=== PATIENT | female | born 1975 | race Caucasian/White ===

== ENCOUNTER 2021-09-30 13:57 | Inpatient (IN) | payer MEDICAID, OTHER ==
[~2021-09-30] VITALS: Ht 157.5 cm; Wt 62.4 kg
[2021-09-30 16:03] LABS: BASOPHILS % (AUTO) 0.3 % (0.0-2.0); EOSINOPHILS % (AUTO) 2.1 % (1.0-6.0); HEMATOCRIT 40.6 % (36-46); HEMOGLOBIN 13.7 g/dL (12.0-16.0); LYMPHOCYTES # (AUTO) 1.8 K/uL (1.0-4.8); LYMPHOCYTES % (AUTO) 22.8 % (22.0-44.0); MEAN CORPUSCULAR HEMOGLOBIN 28.1 pg (26.0-34.0); MEAN CORPUSCULAR HGB CONC 33.7 G/dL (31.0-37.0); MEAN CORPUSCULAR VOLUME 83 fL (80-100); MONOCYTES # (AUTO) 0.4 K/uL (0.1-1.0); MONOCYTES % (AUTO) 5.1 % (2.0-9.0); NEUTROPHILS # (AUTO) 5.6 K/uL (1.8-7.7); NEUTROPHILS % (AUTO) 69.7 % (40.0-70.0); PLATELET COUNT (AUTO) 327 K/uL (150-450); RED BLOOD CELL COUNT(AUTO) 4.87 MIL/uL (4.00-5.20); RED CELL DISTRIBUTION WIDTH 13.8 % (11.5-14.5)
[2021-09-30 16:15] LABS: ANION GAP 12 mmol/L (8-16); CALCIUM, TOTAL 10.1 mg/dL (8.8-10.5); CARBON DIOXIDE 26 mmol/L (22-29); CHLORIDE 95 mmol/L (98-107); CREATININE 0.74 mg/dL (0.60-1.30); GLOMERULAR FILTR. RATE CALC > 60 mL/min (>60); GLUCOSE,RANDOM 336 mg/dL (70-110); POTASSIUM 4.2 mmol/L (3.5-5.1); SODIUM SERUM 133 mmol/L (136-145); UREA NITROGEN, BLOOD 18 mg/dL (7-18)
[2021-09-30 16:22] LABS: ALANINE AMINOTRANSFERASE 34 U/L (12-78); ALKALINE PHOSPHATASE 129 U/L (46-116); ASPARTATE AMINOTRANSFERASE 11 U/L (15-37); BILIRUBIN,TOTAL 0.2 mg/dL (0.1-1.0); TOTAL PROTEIN, SERUM 8.8 g/dL (6.4-8.2)
[2021-09-30 16:26] LABS: GLUCOSE,POINT OF CARE 303 MG/DL (70-110)
[2021-09-30 16:34] LABS: COVID AG,FIA SOURCE NASAL SWAB
[2021-09-30 16:45] LABS: AMPHET/METH SCREEN,URINE NEGATIVE (NEGATIVE); BARBITURATE SCREEN, URINE NEGATIVE (NEGATIVE); BENZODIAZEPINES SCREEN,URINE NEGATIVE (NEGATIVE); CANNABINOID SCREEN,URINE NEGATIVE (NEGATIVE); COCAINE SCREEN,URINE NEGATIVE (NEGATIVE); METHADONE SCREEN, URINE NEGATIVE (NEGATIVE); OPIATE SCREEN,URINE NEGATIVE (NEGATIVE)
[2021-09-30 16:51] LABS: PHENCYCLIDINE SCREEN,URINE NEGATIVE (NEGATIVE)
[2021-09-30] MEDS ORDERED: SODIUM CHLORIDE 0.9% 1,000 ML IV ONE (17:00)
[2021-09-30] MEDS ORDERED: INSULIN REGULAR, HUMAN 100 UNITS/ML SQ ONE (19:00)
[2021-09-30 19:10] LABS: GLUCOSE,POINT OF CARE 376 MG/DL (70-110)
[2021-09-30] MEDS ORDERED: ZOLPIDEM TARTRATE 10 MG TABLET PO PRN (21:00)
[2021-09-30] MEDS ORDERED: LORazepam 2 MG TABLET PO PRN (21:00)
[2021-09-30] MEDS ORDERED: OLANZapine 5 MG RAPDIS TABLET PO PRN (21:00)
[2021-09-30 21:21] LABS: GLUCOSE,POINT OF CARE 330 MG/DL (70-110)
[2021-09-30 21:30] VITALS: BP 121/84
[2021-09-30] MEDS ORDERED: DEXTROSE 50%-WATER 25 GM/50 ML SYRINGE IVP PRN (22:00)
[2021-09-30 22:01] LABS: GLUCOMETER DEV NAME(LOC) 3EX.; GLUCOSE,POINT OF CARE 305 MG/DL (70-110)
[2021-09-30] MEDS: INSULIN LISPRO 100 UNITS/ML SQ PRN (22:18)
[2021-10-01 05:36] LABS: GLUCOMETER DEV NAME(LOC) 3EX.; GLUCOSE,POINT OF CARE 266 MG/DL (70-110)
[2021-10-01] MEDS: MetFORMIN HCL 500 MG TABLET PO SCH ×2 (06:55→16:50)
[2021-10-01] MEDS: INSULIN LISPRO 100 UNITS/ML SQ PRN ×4 (06:57→20:54)
[2021-10-01 08:04] VITALS: BP 113/78
[2021-10-01 08:14] LABS: HEMOGLOBIN A1C 12.6 % (3.8-5.6)
[2021-10-01 08:26] LABS: CHOL/HDL RATIO 5.8 (3.9-5.7); CHOLESTEROL 263 mg/dL (131-200); FREE T4 (FREE THYROXINE) 1.01 ng/dL (0.76-1.46); HDL CHOLESTEROL 45 mg/dL (40-60); THYROID STIMULATING HORMONE 0.53 uIU/mL (0.36-3.74); TRIGLYCERIDES 454 mg/dL (15-150)
[2021-10-01] MEDS: NICOTINE 21 MG/24 HOUR PATCH TD SCH (09:28)
[2021-10-01] MEDS: PIOGLITAZONE HCL 30 MG TABLET PO SCH (10:48)
[2021-10-01 11:37] LABS: GLUCOMETER DEV NAME(LOC) 3EX.; GLUCOSE,POINT OF CARE 384 MG/DL (70-110)
[2021-10-01 12:05] VITALS: BP 113/78
[2021-10-01] MEDS: OMEPRAZOLE 20 MG CAPSULE PO SCH (13:13)
[2021-10-01] MEDS ORDERED: ACETAMINOPHEN 325 MG TABLET PO PRN (14:00)
[2021-10-01] MEDS ORDERED: MAG HYDROX/AL HYDROX/SIMETH ES 30 ML SUSPENSION UDCUP PO PRN (14:00)
[2021-10-01] MEDS ORDERED: HydrOXYzine PAMOATE 50 MG CAPSULE PO PRN (14:00)
[2021-10-01] MEDS ORDERED: GuaiFENesin/D-METHORPHAN [SUGAR-FREE] 200-20MG/10 ML SYRUP UDCUP PO PRN (14:00)
[2021-10-01] MEDS ORDERED: MAGNESIUM HYDROXIDE SUSPENSION 30 ML UDCUP PO PRN (14:00)
[2021-10-01] MEDS ORDERED: LOPERAMIDE HCL 2 MG CAPSULE PO PRN (14:00)
[2021-10-01] MEDS ORDERED: PROMETHAZINE HCL 25 MG TABLET PO PRN (14:00)
[2021-10-01] MEDS ORDERED: TUBERCULIN, PURIFIED PROTEIN DERIVATIVE 5 TU/0.1 ML SYRINGE ID ONE (14:00)
[2021-10-01] MEDS ORDERED: HALOPERIDOL 5 MG TABLET PO PRN (16:15)
[2021-10-01] MEDS ORDERED: HALOPERIDOL DECANOATE 100 MG/ML VIAL IM ONE (16:15)
[2021-10-01 16:16] LABS: GLUCOMETER DEV NAME(LOC) 3EX.; GLUCOSE,POINT OF CARE 348 MG/DL (70-110)
[2021-10-01 16:20] VITALS: BP 120/87
[2021-10-01] MEDS: THIAMINE 100 MG TABLET PO SCH (16:50)
[2021-10-01] MEDS: ATORVASTATIN CALCIUM 40 MG TABLET PO SCH (20:16)
[2021-10-01] MEDS: MELATONIN 5 MG TABLET PO SCH (20:16)
[2021-10-01 20:26] LABS: GLUCOMETER DEV NAME(LOC) 3EX.; GLUCOSE,POINT OF CARE 260 MG/DL (70-110)
[2021-10-01] MEDS ORDERED: OLANZapine 5 MG RAPDIS TABLET PO SCH (21:00)
[2021-10-02 05:42] LABS: GLUCOMETER DEV NAME(LOC) 3EX.; GLUCOSE,POINT OF CARE 278 MG/DL (70-110)
[2021-10-02] MEDS: MetFORMIN HCL 500 MG TABLET PO SCH ×2 (06:46→17:07)
[2021-10-02] MEDS: INSULIN LISPRO 100 UNITS/ML SQ PRN ×4 (06:48→20:59)
[2021-10-02 08:16] LABS: HEMOGLOBIN A1C 12.7 % (3.8-5.6)
[2021-10-02 08:33] LABS: CHOL/HDL RATIO 5.3 (3.9-5.7); FREE T4 (FREE THYROXINE) 1.02 ng/dL (0.76-1.46); THYROID STIMULATING HORMONE 0.85 uIU/mL (0.36-3.74)
[2021-10-02 08:38] VITALS: BP 117/60
[2021-10-02] MEDS ORDERED: FLUoxetine HCL 20 MG CAPSULE PO SCH (09:00)
[2021-10-02] MEDS: PIOGLITAZONE HCL 30 MG TABLET PO SCH (09:47)
[2021-10-02] MEDS: OMEGA-3/DHA/EPA/FISH OIL 1,000 MG CAPSULE PO SCH (09:47)
[2021-10-02] MEDS: OMEPRAZOLE 20 MG CAPSULE PO SCH (09:48)
[2021-10-02] MEDS: FOLIC ACID 1 MG TABLET PO SCH (09:48)
[2021-10-02] MEDS: NICOTINE 21 MG/24 HOUR PATCH TD SCH (09:48)
[2021-10-02] MEDS: THIAMINE 100 MG TABLET PO SCH ×2 (09:48→17:07)
[2021-10-02] MEDS: MULTIVITAMINS WITH MINERALS, THERAPEUTIC TABLET PO SCH (09:48)
[2021-10-02] MEDS: NALTREXONE HCL 50 MG TABLET PO SCH (09:48)
[2021-10-02 12:41] LABS: GLUCOMETER DEV NAME(LOC) 3E.I 2; GLUCOSE,POINT OF CARE 250 MG/DL (70-110)
[2021-10-02] MEDS ORDERED: QUET200T30 PO (16:09)
[2021-10-02] MEDS ORDERED: MELA5TAB40 PO (16:09)
[2021-10-02] MEDS ORDERED: NALT50TA PO (16:09)
[2021-10-02] MEDS ORDERED: OMEG-108 PO (16:09)
[2021-10-02 16:23] VITALS: BP 113/70
[2021-10-02 16:35] LABS: GLUCOMETER DEV NAME(LOC) 3EX.; GLUCOSE,POINT OF CARE 339 MG/DL (70-110)
[2021-10-02] MEDS: GlyBURIDE 5 MG TABLET PO SCH (17:06)
[2021-10-02 20:16] LABS: GLUCOMETER DEV NAME(LOC) 3EX.; GLUCOSE,POINT OF CARE 213 MG/DL (70-110)
[2021-10-02] MEDS: ATORVASTATIN CALCIUM 40 MG TABLET PO SCH (20:25)
[2021-10-02] MEDS: MELATONIN 5 MG TABLET PO SCH (20:25)
[2021-10-02] MEDS ORDERED: QUEtiapine FUMARATE 200 MG TABLET PO SCH (21:00)
[2021-10-03 05:56] LABS: GLUCOMETER DEV NAME(LOC) 3EX.; GLUCOSE,POINT OF CARE 151 MG/DL (70-110)
[2021-10-03] MEDS: MetFORMIN HCL 500 MG TABLET PO SCH (06:36)
[2021-10-03] MEDS: GlyBURIDE 5 MG TABLET PO SCH (06:36)
[2021-10-03] MEDS: INSULIN LISPRO 100 UNITS/ML SQ PRN ×2 (06:51→11:34)
[2021-10-03] MEDS: OMEPRAZOLE 20 MG CAPSULE PO SCH (08:43)
[2021-10-03] MEDS: FOLIC ACID 1 MG TABLET PO SCH (08:43)
[2021-10-03] MEDS: MULTIVITAMINS WITH MINERALS, THERAPEUTIC TABLET PO SCH (08:43)
[2021-10-03] MEDS: NALTREXONE HCL 50 MG TABLET PO SCH (08:43)
[2021-10-03] MEDS: THIAMINE 100 MG TABLET PO SCH (08:43)
[2021-10-03] MEDS: OMEGA-3/DHA/EPA/FISH OIL 1,000 MG CAPSULE PO SCH (08:43)
[2021-10-03] MEDS: NICOTINE 21 MG/24 HOUR PATCH TD SCH (08:43)
[2021-10-03] MEDS: PIOGLITAZONE HCL 30 MG TABLET PO SCH (08:43)
[2021-10-03 09:00] VITALS: BP 100/66
[2021-10-03] MEDS ORDERED: METF-1211 PO (10:25)
[2021-10-03] MEDS ORDERED: GLYB5TAB10 PO (10:25)
[2021-10-03] MEDS ORDERED: PIOG30TA10 PO (10:25)
[2021-10-03] MEDS ORDERED: OMEP20 PO (10:25)
[2021-10-03] MEDS ORDERED: ATOR40TA28 PO (10:25)
[2021-10-03 11:36] LABS: GLUCOMETER DEV NAME(LOC) 3EX.; GLUCOSE,POINT OF CARE 263 MG/DL (70-110)
[2021-10-31] MEDS ORDERED: HALOPERIDOL DECANOATE 100 MG/ML VIAL IM SCH (09:00)
== END 2021-10-03 14:50 | disposition home or self-care (01) | DRG 750 ==
LOC: EMS 13:57 → 3EI 20:57
PROVIDERS: ADMIT Psychiatry & Neurology Psychiatry; ATTEND Psychiatry & Neurology Psychiatry
DX: F20.9 Schizophrenia, unspecified (principal); E87.1 Hypo-osmolality and hyponatremia; E11.9 Type 2 diabetes mellitus without complications; E78.5 Hyperlipidemia, unspecified; F17.200 Nicotine dependence, unspecified, uncomplicated; Z20.822 Contact with and (suspected) exposure to COVID-19; J45.909 Unspecified asthma, uncomplicated; Z55.9 Problems related to education and literacy, unspecified; Z59.9 Problem related to housing and economic circumstances, unspecified; Z63.9 Problem related to primary support group, unspecified; Z65.3 Problems related to other legal circumstances; Z91.19 Patient's noncompliance with other medical treatment and regimen; Z79.4 Long term (current) use of insulin
CPT/HCPCS: 80053; 80061; 82962; 83036; 84439; 84443; 85025; 86592; 99285; G0480; J1631; J1815; J7030; Q9967